=== PATIENT | female | born 1965 | race Caucasian/White ===

== ENCOUNTER 2016-08-25 16:33 | Inpatient (IN) | payer OTHER ==
[2016-08-25 20:20] VITALS: BMI 36.9
--- NOTE | 2016-08-25 21:47 | HP ---
COWS - Scale Resting Pulse: 1= [place] 81-100 Sweatin=Flushed/Facial Moisture Restless Observation: 5= Unable to Sit Still Pupil Size: 1= Pupils >than Normal Bone or Joint Aches: 4=Acute Joint/Muscle Pain Runny Nose/ Eye Tearin= Nasal Congestion GI Upset > 30mins: 3= Vomiting/Diarrhea Tremor Observation: 2= Slight Tremor Visible Yawning Observation: 1= 1-2x During Session Anxiety or Irritability: 2=Irritable/Anxious Goose Flesh Skin: 0=Smooth Skin COWS Score: 22 CIWA Score - CIWA Score Nausea/Vomitin Muscle Tremors: 3 Anxiety: 4-Mod. Anxious/Guarded Agitation: 4-Moderately Restless Paroxysmal Sweats: 3 Orientation: 0-Oriented Tacttile Disturbances: 3-Moderate Itch/Numb/Burn Auditory Disturbances: 0-None Visual Disturbances: 0-None Headache: 2-Mild CIWA-Ar Total Score: 22 Admission ROS BHS - HPI Chief Complaint: SEEKING DETOX FOR POLYSUBSTANCE ABUSE History of Present Illness: 50 Y.O. FEMLAE WITH OPIOID, BENZO DEP ADMITTED FOR DETOX TXMENT. THIS IS CLIENTS FIRST TIME HERE. LAST DETOX SHE REPORTS WAS 6 WEEKS AGO. REPORT LONGEST CLEAN TIME WAS 4 YEARS. Exam Limitations: Physical Impairment (AMBULATES WITH CANE DUE TO PAIN) - Ebola screening Have you traveled outside of the country in the last 21 days: No Have you had contact with anyone from an Ebola affected area: No Have you been sick,other than usual withdrawal symptoms: No Do you have a fever: No - Review of Systems Constitutional: Chills, Loss of Appetite, Malaise, Night Sweats, Changes in sleep, Unintentional Wgt. Loss EENT: reports: No Symptoms Reported Respiratory: reports: No Symptoms reported Cardiac: reports: No Symptoms Reported GI: reports: Nausea, Poor Appetite, Vomiting, Abdominal cramping : reports: No Symptoms Reported Musculoskeletal: reports: Joint Pain Integumentary: reports: Other (VENOUS STASIS TO BLE) Neuro: reports: No Symptoms reported Endocrine: reports: No Symptoms Reported Hematology: reports: No Symptoms Reported Psychiatric: reports: Depressed Other Systems: Reviewed and Negative Patient History - Patient Medical History Hx Anemia: No Hx Asthma: No Hx Chronic Obstructive Pulmonary Disease (COPD): No Hx Cancer: No Hx Cardiac Disorders: No Hx Congestive Heart Failure: No Hx Hypertension: No Hx Pacemaker: No HX Cerebrovascular Accident: No Hx Seizures: No Hx Dementia: No Hx Diabetes: No Hx Gastrointestinal Disorders: No Hx Liver Disease: No Hx Genitourinary Disorders: No Hx Sexually Transmitted Disorders: No Hx Renal Disease (ESRD): No Hx Thyroid Disease: No Hx Human Immunodeficiency Virus (HIV): No Hx Hepatitis C: No Hx Depression: Yes (NO MEDS) Hx Suicide Attempt: No Hx Bipolar Disorder: No Hx Schizophrenia: No Other Medical History: VENOUS STASIS TO BLE WITH VASC CHANGES - Patient Surgical History Past Surgical History: No - PPD History Previous Implant?: Yes Documented Results: Negative w/o proof Implanted On Prior [facility] Admission?: No PPD to be Administered?: Yes - Reproductive History Patient is a Female of Child Bearing Age (11 -55 yrs old): Yes LMP comment: ONE YEAR AGO Patient : No (NEG [facility]) - Smoking Cessation Smoking history: Current every day smoker Have you smoked in the past 12 months: Yes Aproximately how many cigarettes per day: 20 Cigars Per Day: 0 Hx Chewing Tobacco Use: No Initiated information on smoking cessation: Yes 'Breaking Loose' booklet given: 08/25/16 - Substance & Tx. History Hx Alcohol Use: No Hx Substance Use: Yes Substance Use Type: Heroin, Opiates (PEROCETS), Tranquilizers (ATIVAN) - Substances Abused HEROIN Route: Inhalation Frequency: 1-2 times per week Amount used: 6 BAGS Age of first use: 35 Date of Last Use: 08/24/16 PERCOCET Route: Oral Frequency: Daily Amount used: 180 MG Age of first use: 35 Date of Last Use: 08/23/16 ATIVAN/XANAX Route: Oral Frequency: 3-6 times per week Amount used: 2MG Age of first use: 35 Date of Last Use: 08/22/16 Family Disease History - Family Disease History Family Disease History: Other: Father (HIV, DRUGS, ), Sister (BIPOLAR, DRUG ABUSE) Admission Physical Exam S - Vital Signs Vital Signs: Vital Signs - 24 hr 08/25/16 20:14 Temperature 98.9 F Pulse Rate 99 H Respiratory 20 Rate Blood Pressure 142/108 - Physical General Appearance: Yes: Disheveled, Mild Distress, Tremorous, Anxious HEENTM: Yes: EOMI, Normocephalic, Normal Voice, MATTEO, Pharynx Normal, Rhinorrhea , Other (DENTURES UPPER) Respiratory: Yes: Chest Non-Tender, Lungs Clear, Normal Breath Sounds, No Respiratory Distress, No Accessory Muscle Use Neck: Yes: No masses,lesions,Nodules, Supple, Trachea in good position Breast: Yes: Breast Exam Deferred Cardiology: Yes: Regular Rhythm, Regular Rate, Tachycardia Abdominal: Yes: Non Tender, Soft, Other (OBESE) Genitourinary: Yes: Within Normal Limits Back: Yes: Within Normal Limits Musculoskeletal: Yes: Joint Stiffness, Other (AMBULATES WITH CANE) Extremities: Yes: Tremors, Other (BLE VASCULAR CHANGES WITH SWELLING. NO OPEN LESIONS) Neurological: Yes: clay hoister II-XII NML intact, Fully Oriented, Alert, Motor Strength 5/5 Integumentary: Yes: Warm, Other (VENOUS STASIS CHANGES TO BLE) Lymphatic: Yes: Within Normal Limits - Diagnostic (1) Opioid dependence with withdrawal Current Visit: Yes Status: Chronic (2) Sedative, hypnotic or anxiolytic dependence with withdrawal, uncomplicated Current Visit: Yes Status: Chronic (3) Nicotine dependence Current Visit: Yes Status: Chronic Qualifiers: Nicotine product type: cigarettes Substance use status: uncomplicated Qualified Code(s): F17.210 - Nicotine dependence, cigarettes, uncomplicated (4) Venous stasis dermatitis of both lower extremities Current Visit: Yes Status: Chronic Cleared for Admission [facility] - Detox or Rehab [facility] Level of Care: Medically Managed Detox Regimen/Protocol: Methadone/Valium Urine Pregancy Test - Result Urine Test Results: Negative- NO Line Present Urine Drug Screen - Results Urine Drug Screen Results: OPI-Opiates, BZO-Benzodiazepines, OXY-Oxycodone
[2016-08-25] MEDS ORDERED: guaiFENesin/D-METHORPHAN HB 10 ML UNIT-DOSE CUPS PO PRN (22:06)
[2016-08-25] MEDS ORDERED: P-EPHED 60MG/TRIPROLIDI 2.5MG TABLET PO PRN (22:06)
[2016-08-25] MEDS ORDERED: LOPERAMIDE HCL 2 MG CAPSULE PO PRN (22:06)
[2016-08-25] MEDS ORDERED: METHADONE HCL 10 MG TABLET (FOR DETOX USE ONLY) PO ONE ×2 (22:06→23:00)
[2016-08-25] MEDS ORDERED: MENTHOL/PHENOL 1 EACH UD MM PRN (22:06)
[2016-08-25] MEDS ORDERED: diazePAM 5 MG TABLET PO ONE (22:06)
[2016-08-25] MEDS ORDERED: MAGNESIUM CITRATE 300 ML BOTTLE PO PRN (22:06)
[2016-08-25] MEDS ORDERED: ACETAMINOPHEN 325 MG TABLET (FP) PO PRN (22:06)
[2016-08-25] MEDS ORDERED: IBUPROFEN 400 MG TABLET (FP) PO PRN (22:06)
[2016-08-25] MEDS ORDERED: MAG HYDROX/AL HYDROX/SIMETH 30 ML UNIT-DOSE CUP PO PRN (22:06)
[2016-08-25] MEDS ORDERED: MAGNESIUM HYDROX 2400MG/30ML ORAL SUSPENSION 30 ML CUP PO PRN (22:06)
[2016-08-25] MEDS: diazePAM 5 MG TABLET PO SCH (23:45)
[2016-08-26] MEDS: diphenhydrAMINE HCL 50 MG CAPSULE PO PRN ×2 (00:46→22:22)
[2016-08-26] MEDS: diazePAM 5 MG TABLET PO SCH ×3 (05:23→22:20)
[2016-08-26] MEDS ORDERED: METHADONE HCL 10 MG TABLET (FOR DETOX USE ONLY) PO SCH (10:00)
[2016-08-26 10:24] LABS: MCH 26.9 pg (25.7-33.7); MCHC 32.7 g/dl (32.0-36.0); MEAN CELL VOLUME 82.3 fl (80-96); MEAN PLT VOLUME 8.6 fl (7.5-11.1); PLATELET COUNT 283 K/MM3 (134-434); WHITE BLOOD COUNT 10.1 K/mm3 (4.0-10.0)
[2016-08-26] MEDS: NICOTINE 14 MG/24 HOURS TOPICAL PATCH TD SCH (10:33)
[2016-08-26] MEDS: PRENATAL VITAMINS W/ FOLIC ACID TABLET (FP) PO SCH (10:33)
[2016-08-26] MEDS: diazePAM 5 MG TABLET PO PRN ×3 (10:34→23:34)
[2016-08-26 10:35] LABS: ALBUMIN 2.8 g/dl (3.4-5.0); ANION GAP 10 (8-16); CALCIUM 8.6 mg/dL (8.5-10.1); CO2 30 mmol/L (21-32); GLUCOSE,RANDOM 100 mg/dL (74-106); SGOT/AST 15 U/L (15-37); SGPT/ALT 15 U/L (12-78)
[2016-08-26] MEDS: cloNIDine HCL 0.1 MG TABLET PO SCH ×2 (10:36→22:20)
[2016-08-26 10:38] LABS: ALK PHOS 157 U/L (45-117); BILIRUBIN,TOTAL 0.3 mg/dL (0.2-1.0); CREATININE 0.6 mg/dL (0.55-1.02); TOT PROT 6.5 g/dl (6.4-8.2)
--- NOTE | 2016-08-26 10:53 | CONSULT ---
[id number] [facility] Identifying data: This is 50 years old male with no psychiatric hospitalization history intoxicated with : Opioids, Xanax and Nicotine Substance Abuse History: - Smoking Cessation. Smoking history: Current every day smoker. Have you smoked in the past 12 months: Yes. Aproximately how many cigarettes per day: 20. Cigars Per Day: 0. Hx Chewing Tobacco Use: No. Initiated information on smoking cessation: Yes. 'Breaking Loose' booklet given : 08/25/16. - Substance & Tx. History. Hx Alcohol Use: No. Hx Substance Use: Yes. Substance Use Type: Heroin, Opiates (PEROCETS), Tranquilizers (ATIVAN). - Substances Abused. HEROIN. Route: Inhalation. Frequency: 1-2 times per week. Amount used: 6 BAGS. Age of first use: 35. Date of Last Use: 08/24/16. PERCOCET. Route: Oral. Frequency: Daily. Amount used: 180 MG. Age of first use: 35. Date of Last Use: 08/23/16. ATIVAN/XANAX. Route: Oral. Frequency: 3-6 times per week. Amount used: 2MG. Age of first use: 35. Date of Last Use: 08/22/16 Medical History: Lower extremities edema, venous stasis history, Obesity Psychiatric History: Denies past psychoatric hospitalization history, no medicastion taking prior to admission Physical/Sexual Abuse/Trauma History: Denies Additional Comment: Observation. Detox Unit Care Protocol Mental Status Exam - Mental Status Exam Alert and Oriented to: Person Cognitive Function: Fair Patient Appearance: Unkempt Mood: Sad Affect: Flat Patient Behavior: Cooperative Speech Pattern: Appropriate Voice Loudness: Normal Thought Process: Goal Oriented Thought Disorder: Being Controlled Hallucinations: Denies Suicidal Ideation: Denies Homicidal Ideation: Denies Insight/Judgement: Fair Sleep: Difficulty falling asleep Appetite: Weight gain Muscle strength/Tone: Mild Hypertonicity Gait/Station: Shuffling Additional Comments: Observation. Detox Unit Care Protocol Psychiatric Findings - Problem List ([place] 1, 2,3) (1) Nicotine dependence Current Visit: Yes Status: Chronic Qualifiers: Nicotine product type: cigarettes Substance use status: uncomplicated Qualified Code(s): F17.210 - Nicotine dependence, cigarettes, uncomplicated (2) Opioid dependence with withdrawal Current Visit: Yes Status: Chronic (3) Sedative, hypnotic or anxiolytic dependence with withdrawal, uncomplicated Current Visit: Yes Status: Chronic - Initial Treatment Plan Initial Treatment Plan: Observation. Detox Unit Care Protocol
--- NOTE | 2016-08-26 11:07 | PN ---
[facility] CIWA - CIWA Score Nausea/Vomitin-Mild Nausea/No Vomiting Muscle Tremors: 4-Moderate,w/Arms Extend Anxiety: 4-Mod. Anxious/Guarded Agitation: 4-Moderately Restless Paroxysmal Sweats: 4-Forehead w/Sweat Beads Orientation: 0-Oriented Tacttile Disturbances: 0-None Auditory Disturbances: 0-None Visual Disturbances: 0-None Headache: 2-Mild CIWA-Ar Total Score: 19 BHS COWS - Scale Resting Pulse: 1= [place] 81-100 Sweatin=Flushed/Facial Moisture Restless Observation: 1= Difficult to Sit Still Pupil Size: 0= Normal to Room Light Bone or Joint Aches: 2= Severe Diffuse Aches Runny Nose/ Eye Tearin= Runny Nose/Eyes GI Upset > 30mins: 2= Nausea/Diarrhea Tremor Observation of Outstretched Hands: 2= Slight Tremor Visible Yawning Observation: 2= >3x During Session Anxiety or Irritability: 2=Irritable/Anxious Goose Flesh Skin: 3=Piloerection COWS Score: 19 S Progress Note (SOAP) Subjective: irritable body aches sweats shakes interrupted sleep stomach cramps nausea Objective: 08/26/16 11:06 Vital Signs Temperature 97.9 F 08/26/16 09:54 Pulse Rate 91 H 08/26/16 09:54 Respiratory Rate 18 08/26/16 09:54 Blood Pressure 148/89 08/26/16 09:54 O2 Sat by Pulse Oximetry (%) Laboratory Tests 08/26/16 08/26/16 07:00 07:00 WBC 10.1 H RBC 4.67 Hgb 12.6 Hct 38.4 MCV 82.3 MCHC 32.7 RDW 17.0 H Plt Count 283 MPV 8.6 Sodium 140 Potassium 3.2 L Chloride 100 Carbon Dioxide 30 Anion Gap 10 BUN 7 Creatinine 0.6 Creat Clearance w eGFR > 60 Random Glucose 100 Calcium 8.6 Total Bilirubin 0.3 AST 15 ALT 15 Alkaline Phosphatase 157 H Total Protein 6.5 Albumin 2.8 L labs pending awake/alert ambulating no acute distress potassium 3.2; replenish with k-dur labs pending Assessment: 08/26/16 11:09 withdrawal sx Plan: continue detox increase fluids labs pending juventino rios prn
[2016-08-26] MEDS ORDERED: ONDANSETRON *ODT* 4 MG TABLET SL PRN (11:13)
--- NOTE | 2016-08-26 13:10 | EKG ---
Test Reason : Blood Pressure : / mmHG Vent. Rate : 073 BPM Atrial Rate : 073 BPM P-R Int : 160 ms QRS Dur : 100 ms QT Int : 422 ms P-R-T Axes : 038 047 064 degrees QTc Int : 464 ms NORMAL SINUS RHYTHM CANNOT RULE OUT INFERIOR INFARCT , AGE UNDETERMINED ABNORMAL ECG NO PREVIOUS ECGS AVAILABLE Confirmed by DELMA HAMILTON MD ([id number]) on 08/26/2016 1:10:17 PM Referred By: Confirmed By:DELMA HAMILTON MD
[2016-08-26 16:32] LABS: URINE APPEARANCE CLOUDY; URINE BILIRUBIN NEGATIVE (NEGATIVE); URINE BLOOD NEGATIVE (NEGATIVE); URINE COLOR AMBER; URINE GLUCOSE (UA) NEGATIVE (NEGATIVE); URINE KETONE NEGATIVE (NEGATIVE); URINE NITRITE NEGATIVE (NEGATIVE); URINE UROBILINOGEN NEGATIVE E.U./dl (0.2-1.0)
[2016-08-26 16:58] LABS: URINE LEUK ESTERASE TRACE (NEGATIVE); URINE PROTEIN 2+ (NEGATIVE)
[2016-08-26 17:11] LABS: URINE BACTERIA FEW /hpf (NONE SEEN); URINE HYALINE CAST 3 /lpf; URINE MUCUS MANY; URINE RBC 1 /hpf (0-3); URINE WBC 15 /hpf (3-5)
[2016-08-26] MEDS: THIAMINE HCL 100 MG TABLET (FP) PO SCH (22:20)
[2016-08-27] MEDS: diazePAM 5 MG TABLET PO PRN ×4 (08:37→23:35)
[2016-08-27] MEDS: METHADONE HCL 5 MG TABLET (FOR DETOX USE ONLY) PO SCH (10:31)
[2016-08-27] MEDS: PRENATAL VITAMINS W/ FOLIC ACID TABLET (FP) PO SCH (10:31)
[2016-08-27] MEDS: cloNIDine HCL 0.1 MG TABLET PO SCH ×2 (10:31→22:28)
[2016-08-27] MEDS: NICOTINE 14 MG/24 HOURS TOPICAL PATCH TD SCH (10:31)
[2016-08-27] MEDS: diazePAM 5 MG TABLET PO SCH ×2 (10:31→22:28)
--- NOTE | 2016-08-27 11:38 | PN ---
S CIWA - CIWA Score Nausea/Vomitin Muscle Tremors: 3 Anxiety: 3 Agitation: 2 Paroxysmal Sweats: 3 Orientation: 0-Oriented Tacttile Disturbances: 2-Mild Itch/Numbness/Burn Auditory Disturbances: 0-None Visual Disturbances: 0-None Headache: 0-None Present CIWA-Ar Total Score: 16 BHS COWS - Scale Resting Pulse: 0= [place] 80 or Below Sweatin=Flushed/Facial Moisture Restless Observation: 1= Difficult to Sit Still Pupil Size: 1= Pupils >than Normal Bone or Joint Aches: 2= Severe Diffuse Aches Runny Nose/ Eye Tearin= Nasal Congestion GI Upset > 30mins: 2= Nausea/Diarrhea Tremor Observation of Outstretched Hands: 2= Slight Tremor Visible Yawning Observation: 0= None Anxiety or Irritability: 2=Irritable/Anxious Goose Flesh Skin: 0=Smooth Skin COWS Score: 13 BHS Progress Note (SOAP) Subjective: interrupted sleep, sweats, shakes, nausea, vomiting Objective: 08/27/16 11:36 Vital Signs Temperature 97.3 F L 08/27/16 09:41 Pulse Rate 70 08/27/16 09:41 Respiratory Rate 18 08/27/16 09:41 Blood Pressure 172/102 08/27/16 09:41 O2 Sat by Pulse Oximetry (%) Laboratory Tests 08/25/16 08/26/16 08/26/16 07:00 07:00 07:00 WBC 10.1 H RBC 4.67 Hgb 12.6 Hct 38.4 MCV 82.3 MCHC 32.7 RDW 17.0 H Plt Count 283 MPV 8.6 Sodium 140 Potassium 3.2 L Chloride 100 Carbon Dioxide 30 Anion Gap 10 BUN 7 Creatinine 0.6 Creat Clearance w eGFR > 60 Random Glucose 100 Calcium 8.6 Total Bilirubin 0.3 AST 15 ALT 15 Alkaline Phosphatase 157 H Total Protein 6.5 Albumin 2.8 L Urine Color Urine Appearance Urine pH Ur Specific [place] Urine Protein Urine Glucose (UA) Urine Ketones Urine Blood Urine Nitrite Urine Bilirubin Urine Urobilinogen Ur Leukocyte Esterase Urine RBC Urine WBC Ur Epithelial Cells Urine Bacteria Hyaline Casts Urine Mucus RPR Titer Hepatitis C Antibody <0.1 08/26/16 08/26/16 07:00 15:57 WBC RBC Hgb Hct MCV MCHC RDW Plt Count MPV Sodium Potassium Chloride Carbon Dioxide Anion Gap BUN Creatinine Creat Clearance w eGFR Random Glucose Calcium Total Bilirubin AST ALT Alkaline Phosphatase Total Protein Albumin Urine Color Carla Urine Appearance Cloudy Urine pH 6.0 Ur Specific [place] 1.020 Urine Protein 2+ H Urine Glucose (UA) Negative Urine Ketones Negative Urine Blood Negative Urine Nitrite Negative Urine Bilirubin Negative Urine Urobilinogen Negative Ur Leukocyte Esterase Trace H Urine RBC 1 Urine WBC 15 Ur Epithelial Cells Rare Urine Bacteria Few Hyaline Casts 3 Urine Mucus Many RPR Titer Nonreactive Hepatitis C Antibody pt aox3 in nad ambulating in nad Assessment: 08/27/16 11:37 withdrawal sx's Plan: cont. detox increase fluids [place] pprn
[2016-08-27] MEDS: NICOTINE POLACRILEX 2 MG GUM BC PRN (13:50)
[2016-08-27] MEDS ORDERED: POTASSIUM CHLORIDE TABS 20 MEQ TABLET.ER (FP) PO ONE (17:00)
[2016-08-27] MEDS: THIAMINE HCL 100 MG TABLET (FP) PO SCH (22:28)
[2016-08-27] MEDS: diphenhydrAMINE HCL 50 MG CAPSULE PO PRN (23:37)
[2016-08-28] MEDS: diazePAM 5 MG TABLET PO PRN ×4 (05:20→21:13)
[2016-08-28] MEDS: PRENATAL VITAMINS W/ FOLIC ACID TABLET (FP) PO SCH (10:39)
[2016-08-28] MEDS: POTASSIUM CHLORIDE TABS 20 MEQ TABLET.ER (FP) PO SCH (10:39)
[2016-08-28] MEDS: cloNIDine HCL 0.1 MG TABLET PO SCH ×2 (10:39→22:12)
[2016-08-28] MEDS: METHADONE HCL 5 MG TABLET (FOR DETOX USE ONLY) PO SCH (10:40)
[2016-08-28] MEDS: diazePAM 5 MG TABLET PO SCH ×2 (10:40→22:13)
[2016-08-28] MEDS: NICOTINE 14 MG/24 HOURS TOPICAL PATCH TD SCH (10:41)
[2016-08-28] MEDS: METOCLOPRAMIDE HCL 10 MG TABLET (FP) PO SCH ×3 (11:30→22:13)
--- NOTE | 2016-08-28 11:48 | PN ---
BHS Progress Note (SOAP) Subjective: sweats body aches nausea chills Objective: 08/28/16 11:47 Vital Signs Temperature 97.5 F L 08/28/16 10:51 Pulse Rate 72 08/28/16 10:51 Respiratory Rate 20 08/28/16 10:51 Blood Pressure 152/92 08/28/16 10:51 O2 Sat by Pulse Oximetry (%) awake/alert ambulating no acute distress Assessment: 08/28/16 11:48 withdrawal sx Plan: continue detox increase fluids lidocaine patch reglan po
[2016-08-28] MEDS: LIDOCAINE 5% TOPICAL PATCH TP SCH (12:53)
[2016-08-28] MEDS: NICOTINE POLACRILEX 2 MG GUM BC PRN (13:15)
[2016-08-28] MEDS: THIAMINE HCL 100 MG TABLET (FP) PO SCH (23:04)
[2016-08-29] MEDS: METOCLOPRAMIDE HCL 10 MG TABLET (FP) PO SCH ×4 (06:24→22:35)
[2016-08-29] MEDS ORDERED: METHADONE HCL 10 MG TABLET (FOR DETOX USE ONLY) PO SCH (10:00)
[2016-08-29] MEDS ORDERED: diazePAM 5 MG TABLET PO SCH (10:00)
[2016-08-29] MEDS: POTASSIUM CHLORIDE TABS 20 MEQ TABLET.ER (FP) PO SCH (10:33)
[2016-08-29] MEDS: PRENATAL VITAMINS W/ FOLIC ACID TABLET (FP) PO SCH (10:33)
[2016-08-29] MEDS: cloNIDine HCL 0.1 MG TABLET PO SCH ×2 (10:33→22:35)
[2016-08-29] MEDS: NICOTINE 14 MG/24 HOURS TOPICAL PATCH TD SCH (10:34)
[2016-08-29] MEDS: LIDOCAINE 5% TOPICAL PATCH TP SCH (10:36)
[2016-08-29] MEDS: hydrOXYzine PAMOATE 50 MG CAPSULE (FP) PO PRN ×2 (13:45→22:35)
--- NOTE | 2016-08-29 14:14 | PN ---
S Progress Note (SOAP) Subjective: Body aches,sweats, irritability Objective: 08/29/16 14:13 Vital Signs - 8 hr 08/29/16 10:53 Temperature 99.1 F Pulse Rate 79 Respiratory 18 Rate Blood Pressure 141/79 Laboratory Last Values WBC 10.1 K/mm3 (4.0-10.0) H 08/26/16 07:00 RBC 4.67 M/mm3 (3.60-5.2) 08/26/16 07:00 Hgb 12.6 GM/dL (10.7-15.3) 08/26/16 07:00 Hct 38.4 % (32.4-45.2) 08/26/16 07:00 MCV 82.3 fl (80-96) 08/26/16 07:00 MCHC 32.7 g/dl (32.0-36.0) 08/26/16 07:00 RDW 17.0 % (11.6-15.6) H 08/26/16 07:00 Plt Count 283 K/MM3 (134-434) 08/26/16 07:00 MPV 8.6 fl (7.5-11.1) 08/26/16 07:00 Sodium 140 mmol/L (136-145) 08/26/16 07:00 Potassium 3.2 mmol/L (3.5-5.1) L 08/26/16 07:00 Chloride 100 mmol/L (98-107) 08/26/16 07:00 Carbon Dioxide 30 mmol/L (21-32) 08/26/16 07:00 Anion Gap 10 (8-16) 08/26/16 07:00 BUN 7 mg/dL (7-18) 08/26/16 07:00 Creatinine 0.6 mg/dL (0.55-1.02) 08/26/16 07:00 Creat Clearance w eGFR > 60 (>60) 08/26/16 07:00 Random Glucose 100 mg/dL (74-106) 08/26/16 07:00 Calcium 8.6 mg/dL (8.5-10.1) 08/26/16 07:00 Total Bilirubin 0.3 mg/dL (0.2-1.0) 08/26/16 07:00 AST 15 U/L (15-37) 08/26/16 07:00 ALT 15 U/L (12-78) 08/26/16 07:00 Alkaline Phosphatase 157 U/L (45-117) H 08/26/16 07:00 Total Protein 6.5 g/dl (6.4-8.2) 08/26/16 07:00 Albumin 2.8 g/dl (3.4-5.0) L 08/26/16 07:00 Urine Color Carla 08/26/16 15:57 Urine Appearance Cloudy 08/26/16 15:57 Urine pH 6.0 (5.0-8.0) 08/26/16 15:57 Ur Specific [place] 1.020 (1.001-1.035) 08/26/16 15:57 Urine Protein 2+ (NEGATIVE) H 08/26/16 15:57 Urine Glucose (UA) Negative (NEGATIVE) 08/26/16 15:57 Urine Ketones Negative (NEGATIVE) 08/26/16 15:57 Urine Blood Negative (NEGATIVE) 08/26/16 15:57 Urine Nitrite Negative (NEGATIVE) 08/26/16 15:57 Urine Bilirubin Negative (NEGATIVE) 08/26/16 15:57 Urine Urobilinogen Negative E.U./dl (0.2-1.0) 08/26/16 15:57 Ur Leukocyte Esterase Trace (NEGATIVE) H 08/26/16 15:57 Urine RBC 1 /hpf (0-3) 08/26/16 15:57 Urine WBC 15 /hpf (3-5) 08/26/16 15:57 Ur Epithelial Cells Rare /hpf (FEW) 08/26/16 15:57 Urine Bacteria Few /hpf (NONE SEEN) 08/26/16 15:57 Hyaline Casts 3 /lpf 08/26/16 15:57 Urine Mucus Many 08/26/16 15:57 RPR Titer Nonreactive (NONREACTIVE) 08/26/16 07:00 Hepatitis C Antibody <0.1 s/co ratio (0.0-0.9) 08/25/16 07:00 Labs noted Assessment: 08/29/16 14:13 withdrawal sx Plan: continue detox
[2016-08-29] MEDS: THIAMINE HCL 100 MG TABLET (FP) PO SCH (22:35)
[2016-08-30] MEDS ORDERED: METHADONE HCL 5 MG TABLET (FOR DETOX USE ONLY) PO SCH (06:00)
[2016-08-30] MEDS: METOCLOPRAMIDE HCL 10 MG TABLET (FP) PO SCH (07:55)
[2016-08-30] MEDS: PRENATAL VITAMINS W/ FOLIC ACID TABLET (FP) PO SCH (09:42)
[2016-08-30] MEDS: cloNIDine HCL 0.1 MG TABLET PO SCH (09:42)
[2016-08-30] MEDS: hydrOXYzine PAMOATE 50 MG CAPSULE (FP) PO PRN (09:42)
[2016-08-30 09:52] VITALS: BP 136/87; PULSE 104; TEMP 98.8
--- NOTE | 2016-08-30 10:16 | DS ---
[facility] Detox Discharge Summary Admission Date: 08/25/16 Discharge Date: 08/30/16 - History Present History: Opioid Dependence, Sedative Dependence Pertinent Past History: venous stasis, obesity - Physical Exam Results Vital Signs: Vital Signs Temperature 98.8 F 08/30/16 09:51 Pulse Rate 104 H 08/30/16 09:51 Respiratory Rate 20 08/30/16 09:51 Blood Pressure 136/87 08/30/16 09:51 O2 Sat by Pulse Oximetry (%) Pertinent Admission Physical Exam Findings: withdrawal sx Laboratory Last Values WBC 10.1 K/mm3 (4.0-10.0) H 08/26/16 07:00 RBC 4.67 M/mm3 (3.60-5.2) 08/26/16 07:00 Hgb 12.6 GM/dL (10.7-15.3) 08/26/16 07:00 Hct 38.4 % (32.4-45.2) 08/26/16 07:00 MCV 82.3 fl (80-96) 08/26/16 07:00 MCHC 32.7 g/dl (32.0-36.0) 08/26/16 07:00 RDW 17.0 % (11.6-15.6) H 08/26/16 07:00 Plt Count 283 K/MM3 (134-434) 08/26/16 07:00 MPV 8.6 fl (7.5-11.1) 08/26/16 07:00 Sodium 140 mmol/L (136-145) 08/26/16 07:00 Potassium 3.2 mmol/L (3.5-5.1) L 08/26/16 07:00 Chloride 100 mmol/L (98-107) 08/26/16 07:00 Carbon Dioxide 30 mmol/L (21-32) 08/26/16 07:00 Anion Gap 10 (8-16) 08/26/16 07:00 BUN 7 mg/dL (7-18) 08/26/16 07:00 Creatinine 0.6 mg/dL (0.55-1.02) 08/26/16 07:00 Creat Clearance w eGFR > 60 (>60) 08/26/16 07:00 Random Glucose 100 mg/dL (74-106) 08/26/16 07:00 Calcium 8.6 mg/dL (8.5-10.1) 08/26/16 07:00 Total Bilirubin 0.3 mg/dL (0.2-1.0) 08/26/16 07:00 AST 15 U/L (15-37) 08/26/16 07:00 ALT 15 U/L (12-78) 08/26/16 07:00 Alkaline Phosphatase 157 U/L (45-117) H 08/26/16 07:00 Total Protein 6.5 g/dl (6.4-8.2) 08/26/16 07:00 Albumin 2.8 g/dl (3.4-5.0) L 08/26/16 07:00 Urine Color Carla 08/26/16 15:57 Urine Appearance Cloudy 08/26/16 15:57 Urine pH 6.0 (5.0-8.0) 08/26/16 15:57 Ur Specific [place] 1.020 (1.001-1.035) 08/26/16 15:57 Urine Protein 2+ (NEGATIVE) H 08/26/16 15:57 Urine Glucose (UA) Negative (NEGATIVE) 08/26/16 15:57 Urine Ketones Negative (NEGATIVE) 08/26/16 15:57 Urine Blood Negative (NEGATIVE) 08/26/16 15:57 Urine Nitrite Negative (NEGATIVE) 08/26/16 15:57 Urine Bilirubin Negative (NEGATIVE) 08/26/16 15:57 Urine Urobilinogen Negative E.U./dl (0.2-1.0) 08/26/16 15:57 Ur Leukocyte Esterase Trace (NEGATIVE) H 08/26/16 15:57 Urine RBC 1 /hpf (0-3) 08/26/16 15:57 Urine WBC 15 /hpf (3-5) 08/26/16 15:57 Ur Epithelial Cells Rare /hpf (FEW) 08/26/16 15:57 Urine Bacteria Few /hpf (NONE SEEN) 08/26/16 15:57 Hyaline Casts 3 /lpf 08/26/16 15:57 Urine Mucus Many 08/26/16 15:57 RPR Titer Nonreactive (NONREACTIVE) 08/26/16 07:00 Hepatitis C Antibody <0.1 s/co ratio (0.0-0.9) 08/25/16 07:00 Labs noted, K replacement given - Treatment Hospital Course: Detox Protocol Followed, Detoxed Safely, Responded well, Discharged Condition Good, Rehab Referral Accepted Patient has Accepted a Rehab Referral to: [address] - Medication Discharge Medications: Ambulatory Orders NK [No Known Home Medication] 08/25/16 - Diagnosis (1) Nicotine dependence Current Visit: Yes Status: Chronic Qualifiers: Nicotine product type: cigarettes Substance use status: uncomplicated Qualified Code(s): F17.210 - Nicotine dependence, cigarettes, uncomplicated (2) Opioid dependence with withdrawal Current Visit: Yes Status: Chronic (3) Sedative, hypnotic or anxiolytic dependence with withdrawal, uncomplicated Current Visit: Yes Status: Chronic (4) Venous stasis dermatitis of both lower extremities Current Visit: Yes Status: Chronic - AMA Did Patient Leave Against Medical Advice: No
== END 2016-08-30 09:48 | disposition home or self-care (01) | DRG 773 ==
LOC: YASAS 16:33 → Y6N 22:18
PROVIDERS: ADMIT Internal Medicine Addiction Medicine; ATTEND Internal Medicine Addiction Medicine
PROC: HZ2ZZZZ Detoxification Services for Substance Abuse Treatment (ICD-10-PCS; principal; 2016-08-25)
DX: F11.23 Opioid dependence with withdrawal (principal); F13.230 Sedative, hypnotic or anxiolytic dependence with withdrawal, uncomplicated; F17.210 Nicotine dependence, cigarettes, uncomplicated; I87.8 Other specified disorders of veins; L30.8 Other specified dermatitis; I87.2 Venous insufficiency (chronic) (peripheral); R00.0 Tachycardia, unspecified
CPT/HCPCS: 36415; 80053; 81003; 81015; 85027; 86593; 93005; 93010